=== PATIENT | male | born 1930 | race African-American/Black ===

== ENCOUNTER 2016-09-18 17:06 | Inpatient (IN) | payer MEDICARE ==
[~2016-09-18] VITALS: Ht 172.7 cm; Wt 53.1 kg
[~2016-09-18 17:06] MED LIST: ATEN50TA PO; ATOR20TA PO; CHOL100040 PO; DOCU250C75 PO; DONE5TAB34 PO; HYDR12.5 PO; LISI-603 PO; OMEP40CA37 PO; RISP1TAB27 PO; SENN-18 PO; TAMS0.4C34 PO; VALP250S11 PO; VALP250S3 PO
--- NOTE | 2016-09-18 17:20 | NUR ---
PT BIB PA FOR EVAL OF GENERALIZED BODY PAIN AND DEONTE EYELID SWELLING, L MORE THAN R. EYES DO APPEAR SLIGHTLY SWOLLEN BUT PT UNABLE TO FOLLOW COMMANDS TO OPEN EYES TO PERFORM MORE THOROUGH EXAM. UNABLE TO ASSESS PAIN D/T PT'S LOC. RESP EVEN UNLABORED. SKIN WARM NONDIAPHORETIC. NAD NOTED. WOOD CATH PRESENT ON ARRIVAL. IN ER BED 09 ON MONITOR.
[2016-09-18] MEDS ORDERED: BISA5TAB10 PO (17:26)
[2016-09-18] MEDS ORDERED: CHOL100044 PO (17:26)
[2016-09-18] MEDS ORDERED: SENN1TAB83 PO (17:26)
--- NOTE | 2016-09-18 17:47 | NUR ---
lab techs at bedside for draw
[2016-09-18 17:50] LABS: BASOPHILS # (AUTO) 0.1 /CMM (0.0-0.2); BASOPHILS % (AUTO) 1.3 % (0.0-2.0); EOSINOPHILS % (AUTO) 0.4 % (0.0-6.0); HEMATOCRIT 36 % (39-51); LYMPHOCYTES # (AUTO) 0.9 /CMM (0.8-4.8); LYMPHOCYTES % (AUTO) 13.4 % (20.0-44.0); MEAN CORPUSCULAR HEMOGLOBIN 29 PG (26.0-33.0); MEAN CORPUSCULAR HGB CONC 33 g/dl (31.0-36.0); MEAN CORPUSCULAR VOLUME 86 fL (80-96); MONOCYTES # (AUTO) 0.6 /CMM (0.1-1.30); MONOCYTES % (AUTO) 9.1 % (2.0-12.0); NEUTROPHILS # (AUTO) 4.9 /CMM (1.8-8.9); NEUTROPHILS % (AUTO) 75.8 % (43.0-81.0); PLATELET COUNT (AUTO) 291 /CMM (150-450); RDW COEFFICIENT OF VARIATION 12.8 (11.5-15.0); RED BLOOD CELL COUNT(AUTO) 4.21 MIL/uL (4.5-6.0); WHITE BLOOD COUNT (AUTO) 6.5 K/uL (4.3-11.0)
--- NOTE | 2016-09-18 17:51 | NUR ---
PT WITHDRAWS FROM PAIN
[2016-09-18 18:03] LABS: INR 1.03 (0.87-1.13); PROTHROMBIN TIME 10.7 SECS (9.5-12.7)
[2016-09-18 18:06] LABS: ALANINE AMINOTRANSFERASE 17 U/L (12-78); ALBUMIN 2.5 g/dL (3.4-5.0); ALKALINE PHOSPHATASE 40 U/L (46-116); ASPARTATE AMINOTRANSFERASE 19 U/L (15-37); BILIRUBIN,DIRECT 0.1 mg/dL (0.0-0.2); BILIRUBIN,TOTAL 0.2 mg/dL (0.2-1.0); CALCIUM, SERUM 8.7 mg/dL (8.5-10.1); CARBON DIOXIDE 29 mmol/L (21-32); CHLORIDE 105 mmol/L (98-107); CREATININE 1.1 mg/dL (0.6-1.3); GLUCOSE 125 mg/dL (74-106); POTASSIUM 3.9 mmol/L (3.5-5.1); SODIUM SERUM 140 mmol/L (136-145); TOTAL PROTEIN, SERUM 6.6 g/dL (6.4-8.2); UREA NITROGEN, BLOOD 18 mg/dL (7-18)
[2016-09-18 18:08] LABS: TROPONIN I < 0.017 ng/mL (0.00-0.056)
--- NOTE | 2016-09-18 18:16 | NUR ---
REPORT GIVEN TO LEE DALLAS FOR ARNOLDO
[2016-09-18 18:17] LABS: SERUM AMMONIA 24 umol/L (11-32)
[2016-09-18 18:51] LABS: APPEARANCE,URINE Clear (CLEAR); BILIRUBIN,URINE Negative (NEGATIVE); BLOOD, URINE Moderate Ery/uL (NEGATIVE); COLOR,URINE Yellow (YELLOW); KETONES,URINE Negative (NEGATIVE); LEUKOCYTE ESTERASE ,URINE Small (NEGATIVE); NITRITE, URINE Negative (NEGATIVE); PROTEIN,URINE 30 mg/dl (NEGATIVE); UGLUCOSE Negative (NEGATIVE)
--- NOTE | 2016-09-18 19:38 | NUR ---
DIVINE PAGED, INTERACTIVE MEDIA SPECIALIST
--- NOTE | 2016-09-18 19:42 | NUR ---
CALLED NURSING SUP. FOR TELE BED
[2016-09-18 19:46] LABS: BACTERIA,URINE Few /HPF (None Seen)
[2016-09-18 19:47] LABS: SQUAMOUS EPITHELIAL CELL,UR Rare /HPF (None Seen)
--- NOTE | 2016-09-18 20:06 | NUR ---
contacted agustin yao he stated the bed will be ready soon and he will call me back
[2016-09-18 20:30] VITALS: BP 149/76
--- NOTE | 2016-09-18 20:50 | NUR ---
RN NOTE PT ARRIVED ON UNIT, ADMITTED FOR AMS- FROM [facility]. AAOX1, NON-VERBAL, EYE OPENING AT TIMES. NO S/S OF RESPIRATORY DISTRESS OR DISCOMFORT AT THIS TIME. VSS. TELE SHOWS SR IN 60'S. PACEMAKER ON LEFT CHEST WALL. IV INTACT AND PATENT S/L. F/C DRAINING YELLOWISH PAULY FLUID. SKIN INTACT - ALSO WARM TO TOUCH AND NON-DIAPHORETIC. KEPT CLEAN AND DRY. ORIENTATED TO UNIT AND CALL LIGHT- WILL CONT TO MONITOR. Addendum: 09/18/16 at 2232 by ANDERS NGUYEN RN TELE SHOWS SR WITH BBB IN 60'S
[2016-09-18] MEDS ORDERED: ACETAMINOPHEN 650 MG/SUPP.RECT RC PRN (21:30)
[2016-09-18] MEDS ORDERED: MORPHINE SULFATE INJ 2 MG/ML DISP.SYRIN IV PRN (21:30)
[2016-09-18] MEDS ORDERED: Z GUARD REMEDY 2 OZ OINT TP PRN (21:30)
[2016-09-18] MEDS ORDERED: BISACODYL (5 MG) 5 MG TABLET.DR PO PRN (21:30)
[2016-09-18] MEDS ORDERED: Medication Not On Formulary EA (Valproate Sodium (Valproic Acid) 500 MG) PO SCH (22:00)
[2016-09-18] MEDS ORDERED: TAMSULOSIN 0.4 MG CAP.SR.24H PO SCH (22:00)
[2016-09-18] MEDS ORDERED: SENNOSIDES/DOCUSATE SODIUM 1 TAB TABLET PO SCH (22:00)
[2016-09-19] VITALS (8 sets, daily range): BP systolic 123–144; BP diastolic 67–97
[2016-09-19] MEDS ORDERED: IV SET PRIMARY PUMP SET 1 EA INFUS.SET MC ONE (01:03)
[2016-09-19] MEDS ORDERED: IV D5/ 0.9% NACL 1,000 ML IV ONE (01:03)
[2016-09-19] MEDS ORDERED: PANTOPRAZOLE 40 MG VIAL ONE (01:09)
[2016-09-19] MEDS: PANTOPRAZOLE 40 MG VIAL IV SCH (01:15)
[2016-09-19] MEDS: IV D5/ 0.9% NACL 1,000 ML IV PRN (01:16)
--- NOTE | 2016-09-19 02:00 | NUR ---
RN NOTE PT RESTING COMFORTABLY IN BED WITH EYES CLOSED. NO S/S OF DISTRESS AT THIS TIME. WILL MONITOR.
--- NOTE | 2016-09-19 06:45 | NUR ---
RN NOTE NO SIGNIFICANT CHANGES OVERNIGHT. PT NON-VERBAL, EYE OPENING AT TIMES. NO S/S OF RESPIRATORY DISTRESS OR DISCOMFORT. IV INTACT, TOLERATING FLUIDS WELL. TELE SHOWS SB - SR. VSS. CALL LIGHT IN REACH - WILL F/U WITH DAY SHIFT FOR ARNOLDO. NPO STATUS, FOR SWALLOW EVAL TODAY.
[2016-09-19 07:05] LABS: BASOPHILS % (AUTO) 0.9 % (0.0-2.0); HEMATOCRIT 35 % (39-51); HEMOGLOBIN 11.7 g/dL (13.5-17.5); LYMPHOCYTES # (AUTO) 0.8 /CMM (0.8-4.8); LYMPHOCYTES % (AUTO) 16.1 % (20.0-44.0); MEAN CORPUSCULAR HEMOGLOBIN 29 PG (26.0-33.0); MEAN CORPUSCULAR HGB CONC 34 g/dl (31.0-36.0); MEAN CORPUSCULAR VOLUME 86 fL (80-96); MONOCYTES # (AUTO) 0.5 /CMM (0.1-1.30); MONOCYTES % (AUTO) 9.7 % (2.0-12.0); NEUTROPHILS # (AUTO) 3.6 /CMM (1.8-8.9); NEUTROPHILS % (AUTO) 72.3 % (43.0-81.0); PLATELET COUNT (AUTO) 271 /CMM (150-450); RDW COEFFICIENT OF VARIATION 13.4 (11.5-15.0); RED BLOOD CELL COUNT(AUTO) 4.01 MIL/uL (4.5-6.0); WHITE BLOOD COUNT (AUTO) 4.9 K/uL (4.3-11.0)
[2016-09-19] MEDS ORDERED: PANTOPRAZOLE 40 MG TABLET.DR PO SCH (07:30)
[2016-09-19 07:31] LABS: CHOLESTEROL 189 mg/dL (<200); HDL CHOLESTEROL 50 mg/dL (40-60); LDL 115 mg/dL (0-99); THYROID STIMULATING HORMONE 1.359 uIU/mL (0.358-3.74); TRIGLYCERIDES 44 mg/dL (30-150)
[2016-09-19 07:36] LABS: ALANINE AMINOTRANSFERASE 22 U/L (12-78); ALBUMIN 2.4 g/dL (3.4-5.0); ALKALINE PHOSPHATASE 38 U/L (46-116); ASPARTATE AMINOTRANSFERASE 22 U/L (15-37); B-TYPE NATRIURETIC PEPTIDE 119 PG/ML (0-125); BILIRUBIN,TOTAL 0.3 mg/dL (0.2-1.0); CALCIUM, SERUM 8.1 mg/dL (8.5-10.1); CARBON DIOXIDE 25 mmol/L (21-32); CHLORIDE 106 mmol/L (98-107); CREATININE 0.9 mg/dL (0.6-1.3); GLUCOSE 107 mg/dL (74-106); MAGNESIUM 1.8 mg/dL (1.8-2.4); PHOSPHORUS 3.2 mg/dL (2.5-4.9); POTASSIUM 3.6 mmol/L (3.5-5.1); SODIUM SERUM 140 mmol/L (136-145); TOTAL PROTEIN, SERUM 6.5 g/dL (6.4-8.2); UREA NITROGEN, BLOOD 15 mg/dL (7-18)
--- NOTE | 2016-09-19 07:57 | NUR ---
RN OPENING NOTES RECEIVED PATIENT IN BED ASLEEP WITH HEAD OF BED ELEVATED, NO SOB OR DISTRESS NOTED. PATIENT ON TELE MONITOR SR HEART RATE OF 63. ALERT AND ORIENTED TIMES 1. IV INTACT AND PATENT. KEPT PATIENT CLEAN AND COMFORTABLE IN BED, CALL LIGHT WITHIN PATIENT REACH, WILL CONTINUE TO MONITOR ACCORDINGLY.
[2016-09-19] MEDS ORDERED: LISINOPRIL (20MG) 20 MG TABLET PO SCH (09:00)
[2016-09-19] MEDS ORDERED: CHOLECALCIFEROL 1,000 UNIT TABLET (VIT D3) PO SCH (09:00)
[2016-09-19] MEDS: FUROSEMIDE 20 MG/2 ML VIAL IV SCH (09:41)
[2016-09-19] MEDS: GENTAMICIN OPTH SOLN 0.3% 5 ML BOTTLE EACHEYE SCH ×4 (10:45→21:07)
--- NOTE | 2016-09-19 12:30 | NUR ---
RN NOTES DIET CHANGED FROM NPO TO PUREED DIET AFTER ST EVALUATION.
--- NOTE | 2016-09-19 13:30 | NUR ---
RN NOTES PATIENT IS ASLEEP WITH NO SIGNS OF SOB OR DISTRESS NOTED.
--- NOTE | 2016-09-19 19:08 | NUR ---
RN CLOSING NOTES ALL NEEDS PROVIDED, ATTENDED, AND ANTICIPATED. ON TELE MONITOR SR HEART RATE 65. KEPT PATIENT CLEAN AND COMFORTABLE IN BED. CALL LIGHT WITHIN PATIENT REACH, WILL CONTINUE TO MONITOR ACCORDINGLY. ENDORSED TO NEXT SHIFT RN TO CONTINUE CARE.
--- NOTE | 2016-09-19 19:30 | NUR ---
RN OPENING NOTES RECEIVED PATIENT IN BED ASLEEP WITH HEAD OF BED ELEVATED, NO SOB OR DISTRESS NOTED. PATIENT ON TELE MONITOR SR HEART RATE OF 68. ALERT AND ORIENTED TIMES 1. IV INTACT AND PATENT. KEPT PATIENT CLEAN AND COMFORTABLE IN BED, CALL LIGHT WITHIN PATIENT REACH, WILL CONTINUE TO MONITOR ACCORDINGLY.
--- NOTE | 2016-09-19 21:30 | NUR ---
Patient resides at the [facility] [phone]. He requires max assist with adls. Seen by speech therapy- recommended puree diet. PT eval is pending. Will discuss dc planning option with family after PT eval completed. Patient might need SNF placement. Addendum: 09/19/16 at 2130 by AMARJIT RODRIGUEZ RN Amended: Links added.
[2016-09-20] VITALS: BP_SYST 130; BP_SYST 135; BP_DIAS 77; BP_DIAS 78
[2016-09-20] MEDS: PANTOPRAZOLE 40 MG VIAL IV SCH (00:16)
[2016-09-20] MEDS: IV D5/ 0.9% NACL 1,000 ML IV PRN ×2 (00:16→20:10)
[2016-09-20] MEDS: GENTAMICIN OPTH SOLN 0.3% 5 ML BOTTLE EACHEYE SCH ×7 (00:17→23:13)
[2016-09-20 04:00] VITALS: BP 111/61
--- NOTE | 2016-09-20 06:24 | NUR ---
STAFF NURSE ANESTHETIST NOTE PATIENT STABLE. SLEEPING WELL. NO RESPIRATORY DISTRESS OR SOB AT THIS TIME. NO S/S OF PAIN OR DISCOMFORT. KEPT CLEAN, DRY, AND COMFORTABLE. IV SITE INTACT, WITH NO INFILTRATION OR REDNESS NOTED. FLUIDS RUNNING ORDERED. WOOD CATHETER IN PLACE WITH CLEAR, YELLOW URINE IN COLLECTION BAG. ALL NEEDS MET AND ATTENDED TO. WILL ENDORSE TO DAY SHIFT FOR ARNOLDO.
--- NOTE | 2016-09-20 07:24 | NUR ---
RN OPENING NOTES RECEIVED PATIENT IN BED ASLEEP WITH HEAD OF BED ELEVATED, NO SOB OR DISTRESS NOTED. PATIENT ON TELE MONITOR SR WITH PVC'S HEART RATE OF 88. ALERT AND ORIENTED TIMES 1, NON VERBAL. IV INTACT AND PATENT. KEPT PATIENT CLEAN AND COMFORTABLE IN BED, CALL LIGHT WITHIN PATIENT REACH, WILL CONTINUE TO MONITOR ACCORDINGLY.
[2016-09-20 08:00] VITALS: BP 115/64
[2016-09-20] MEDS: FUROSEMIDE 20 MG/2 ML VIAL IV SCH (08:49)
--- NOTE | 2016-09-20 09:30 | NUR ---
RN NOTES PATIENT COMFORTABLE IN BED WITH NO SIGNS OF SOB OR DISTRESS NOTED.
--- NOTE | 2016-09-20 15:30 | NUR ---
RN NOTES CONTINUE MONITORING PATIENT, PATIENT IS STABLE WITH NO SIGNS OF SOB OR DISTRESS NOTED.
[2016-09-20 16:00] VITALS: BP 132/69
--- NOTE | 2016-09-20 19:21 | NUR ---
RN CLOSING NOTES ALL NEEDS PROVIDED, ATTENDED, AND ANTICIPATED. KEPT PATIENT CLEAN AND COMFORTABLE IN BED. CALL LIGHT WITHIN PATIENT REACH, WILL CONTINUE TO MONITOR ACCORDINGLY. ENDORSED TO NEXT SHIFT RN TO CONTINUE CARE
--- NOTE | 2016-09-20 19:30 | NUR ---
RN NOTES: RECEIVED ASLEEP LYING ON BED COMFORTABLY,A/OX1.OPENING EYES TO SOUND AND PAIN,NON VERBAL,NO SIGN OF PAIN AND DISCOMFORT ,NO SIGN OF RESPIRATORY DISTRESS AND SOB,CANNULA IN SITE RFA G#20,WITH IVF OF D5NS AT 50CC/HR VIA INFUSION PUMP ONGOING.ON WOOD CATH DRAINING INTO YELLOWISH COLRED URINE AT 50CC LEVEL. OBSERVE UNIVERSAL PRECAUTION, FALL,SAFETY&ASPIRATION PRECAUTION,CALL LIGHT WITHIN EASY REACH,BED LOW AND LOCKED, SIDE RAILS UP X3.
[2016-09-20 20:00] VITALS: BP 132/62
--- NOTE | 2016-09-20 20:11 | NUR ---
RN NOTES: EYE DROPS GIVEN,IVF REPLACE WITH NEW BAG.KEPT ON CLOSE WATCH.RESPONDING WHEN NAME CALLED,HE IS MOVING,EYES CLOSE MOST OF THE TIME.CALL LIGHT WITHIN REACH.TURNING AND REPOSITIONING DONE.
[2016-09-21] MEDS: PANTOPRAZOLE 40 MG VIAL IV SCH (00:41)
--- NOTE | 2016-09-21 00:48 | NUR ---
RN NOTES: AWAKE IN BETWEEN, OPENING HIS EYES,TURNING AND REPOSITIONING DONE.
[2016-09-21] MEDS: GENTAMICIN OPTH SOLN 0.3% 5 ML BOTTLE EACHEYE SCH ×6 (03:00→23:00)
--- NOTE | 2016-09-21 05:01 | NUR ---
RN NOTES: BED BATH RENDERED, CLEAN AND CHANGE,REPOSITION.KEPT ON SEMI FOWLERS POSITION, CALL LIGHT WITHIN EASY REACH.
--- NOTE | 2016-09-21 06:40 | NUR ---
RN NOTES: OPENING HIS EYES WHEN HIS NAME IS CALLED, LESSER YELLOWISH EYE DISCHARGES NOTED COMPARED TO THE BEGINNING OF THE SHIFT,ASLEEP IN BETWEEN, ENDORSED FOR CONTINUITY OF CARE.
--- NOTE | 2016-09-21 07:20 | NUR ---
MS RN OPENING NOTES PATIENT RECEIVED ASLEEP IN BED, EASILY AWAKENS. OPENS HIS EYES TO TOUCH AND PAIN STIMULI. NON-VERBAL, NO S/S OF PAIN OR DISCOMFORTS AT THIS TIME. ON ROOM AIR, BREATHING EVEN AND UNLABORED. WOOD IN P[LACE WITH POSITIVE URINE CLEAR YELLOW URINE NOTED TO BEDSIDE DRAINAGE BAG. IV ACCESS TO RIGHT FOREARM G#20 INTACT AND PATENT WITH D5 NS INFUSING 50ML/HR, NO S/S OF INFILTRATION NOTED. CALL LIGHT WITHIN REACH. BED LOCKED AND IN LOWEST POSITION WITH SIDE-RAILS UP APPROPRIATE. ALL SAFETY PRECAUTIONS MAINTAINED. WILL CONTINUE TO MONITOR ACCORDINGLY.
[2016-09-21 08:00] VITALS: BP 116/67
[2016-09-21] MEDS: FUROSEMIDE 20 MG/2 ML VIAL IV SCH (09:18)
[2016-09-21 15:52] VITALS: BP 103/55
[2016-09-21 16:00] VITALS: BP 103/55
[2016-09-21] MEDS: IV D5/ 0.9% NACL 1,000 ML IV PRN (16:30)
--- NOTE | 2016-09-21 18:49 | NUR ---
MS RN CLOSING NOTES PATIENT IN BED AWAKE AND LYING AT MODERATE HIGH BACKREST. NON-VERBAL, OPENS HIS EYES TO TOUCH AND PAIN STIMULI. ON ROOM AIR, BREATHING EVEN AND UNLABORED. LEFT EYELID SLIGHTLY SWOLLEN BUT NO DRAINAGE OBSERVED, CONTINUES ON GENTAMICIN EYE GTTS Q4HRS. ALL DUE NURSING CARE DONE. WOOD IN PLACE WITH POSITIVE URINE CLEAR YELLOW URINE NOTED TO BEDSIDE DRAINAGE BAG. IV ACCESS TO RIGHT FOREARM G#20 INTACT AND PATENT WITH D5 NS INFUSING AT 50ML/HR, NO S/S OF INFILTRATION NOTED. CALL LIGHT WITHIN REACH. BED LOCKED AND IN LOWEST POSITION WITH SIDE-RAILS UP X2. ALL SAFETY PRECAUTIONS MAINTAINED. ENDORSED TO SPEECH LANG PATH THERAPIST NURSE FOR ARNOLDO.
--- NOTE | 2016-09-21 19:30 | NUR ---
RN NOTES RECEIVED PATIENT IN BED WITH EYES CLOSED, EASILY AROUSABLE. AO X 1, NON-VERBAL. NO ACUTE DISTRESS NOTED. NO SIGNS OF PAIN NOTED. IV SITE PATENT, INTACT; IVF INFUSING ORDERED. WOOD CATH PATENT, INTACT; DRAINING CLEAR YELLOW URINE. ON LOW BED WITH BILATERAL UPPER SIDE RAILS UP. CALL LIGHT WITHIN EASY REACH. WILL CONTINUE TO MONITOR.
[2016-09-21 20:00] VITALS: BP 145/97
[2016-09-22] MEDS: PANTOPRAZOLE 40 MG VIAL IV SCH (01:13)
[2016-09-22] MEDS: GENTAMICIN OPTH SOLN 0.3% 5 ML BOTTLE EACHEYE SCH ×4 (04:00→16:01)
--- NOTE | 2016-09-22 06:29 | NUR ---
RN NOTES PATIENT IN BED ASLEEP, AROUSABLE TO TOUCH. RESPIRATIONS EVEN. NO SIGNS OF PAIN NOTED. DUE MEDS GIVEN WITH NO ASE NOTED. NEEDS ATTENDED. SAFETY PRECAUTIONS AND COMFORT MEASURES IN PLACE. WILL GIVE REPORT TO DAY SHIFT FOR CONTINUITY OF CARE.
--- NOTE | 2016-09-22 07:30 | NUR ---
ms rn initial notes Received patient in bed, asleep, head of bed elevated, no SOB or distress noted. on room air and tolerated well. IV intact and patent with IVF infusing well. Harris in placed attached to drainage bag. Patient is Arousable to pain. kept patient clean and comfortable in bed, call light with in patient reach, will continue to monitor accordingly.
[2016-09-22 08:00] VITALS: BP 136/82
[2016-09-22] MEDS: FUROSEMIDE 20 MG/2 ML VIAL IV SCH (08:55)
[2016-09-22] MEDS ORDERED: GENT5DRO23 EACHEYE (12:25)
[2016-09-22 16:00] VITALS: BP 122/67
--- NOTE | 2016-09-22 17:30 | NUR ---
ms melter supervisor oxygen furnace notes Patient is confused and unable to sign. Discharge paper signed by 2 nurses. Called patient son Carlos and unable to contact, left a voicemail message to inform patient is going to SNF. Pictures taken by warehouse worker 2nd shift RN and filed in the chart. Pneumonia not given will receive elsewhere, flu vaccine is out of season. Report given to Marsha and made aware. Vital signs checked recorded. Patient picked up by the ambulance accompanied by 2 EMT in stable condition. MD and charge nurse aware.
== END 2016-09-22 17:30 | DRG 56 ==
LOC: ER 17:09 → TELE 20:12 → MED 09-20 09:53
PROVIDERS: ADMIT Internal Medicine; ATTEND Internal Medicine
DX: G91.2 (Idiopathic) normal pressure hydrocephalus (principal); E43 Unspecified severe protein-calorie malnutrition; G92 Toxic encephalopathy; D68.59 Other primary thrombophilia; Z68.1 Body mass index [BMI] 19.9 or less, adult; I50.9 Heart failure, unspecified; D64.9 Anemia, unspecified; F03.90 Unspecified dementia, unspecified severity, without behavioral disturbance, psychotic disturbance, mood disturbance, and anxiety; I25.10 Atherosclerotic heart disease of native coronary artery without angina pectoris; K21.9 Gastro-esophageal reflux disease without esophagitis; N40.0 Benign prostatic hyperplasia without lower urinary tract symptoms; Z79.899 Other long term (current) drug therapy; Z95.0 Presence of cardiac pacemaker; Z86.73 Personal history of transient ischemic attack (TIA), and cerebral infarction without residual deficits; I11.0 Hypertensive heart disease with heart failure; E11.9 Type 2 diabetes mellitus without complications
CPT/HCPCS: 36415; 70450-TC; 71010-TC; 80048-TC; 80053-TC; 80061-TC; 80076-TC; 81000-TC; 82140-TC; 83605-TC; 83735-TC; 83880; 84100-TC; 84443-TC; 84484-TC; 85025-TC; 85730-TC; 87040-TC; 87081-TC; 87086-TC; 92611-TC; 93307-TC; 97001-TC; A4606; C9113; J1940; J7042; Z7610